=== PATIENT | female | born 1990 | race Caucasian/White ===

== ENCOUNTER 2017-02-04 17:07 | Emergency (ER) | payer MEDICAID ==
[2017-02-04 17:19] VITALS: BP 137/99
--- NOTE | 2017-02-04 17:23 | ER Document Report ---
HPI - HPI Patient complains to provider of: possible dust mite bites, dental pain Onset: Last week Onset/Duration: Gradual, Persistent Pain Level: 3 Context: 26-year-old female complaining of seeing the white bugs was her inner male partner. She has a facial rash which she is scratching and a left lower leg lesion that she scratched and deroofed that is been there for up to 3 weeks. No fever or chills. Denies drug use. She also is complaining of lower left dental pain her second molar is decayed to the root she says. No facial swelling. Associated Symptoms: None Exacerbated by: Denies Relieved by: Denies Similar symptoms previously: No Recently seen / treated by doctor: No - ROS ROS below otherwise negative: Yes Systems Reviewed and Negative: Yes All other systems reviewed and negative - DERM Skin Color: Normal Past Medical History - General Information source: Patient - Social History Smoking Status: Current Every Day Smoker Frequency of alcohol use: None Drug Abuse: None Lives with: Spouse/Significant other Family History: Reviewed & Not Pertinent Patient has suicidal ideation: No Patient has homicidal ideation: No - Medical History Medical History: Negative Renal/ Medical History: Denies: Hx Peritoneal Dialysis Surgical Hx: Negative Vertical Provider Document - CONSTITUTIONAL Agree With Documented VS: Yes Exam Limitations: No Limitations - INFECTION CONTROL TRAVEL OUTSIDE OF THE [place] IN LAST 30 DAYS: No - HEENT HEENT: Normocephalic Notes: Multiple decayed molars the lower left second molar is decayed to the pulp there is no inflammation or drainage. - NECK Neck: Supple. negative: Lymphadenopathy-Left, Lymphadenopathy-Right - RESPIRATORY Respiratory: Breath Sounds Normal, No Respiratory Distress O2 Sat by Pulse Oximetry: 98 - CARDIOVASCULAR Cardiovascular: Regular Rate, Regular Rhythm Notes: Repeat pulse was 90 - MUSCULOSKELETAL/EXTREMETIES Musculoskeletal/Extremeties: POLO LYLE - NEURO Level of Consciousness: Awake, Alert, Appropriate - DERM Integumentary: Rash - inflamed deroofed lesion left lower leg, 4 mm center, with 2 cm inflammation that is non tender (chronic itching). left mamdible lower cheek with deroofed pimples Course - Re-evaluation Re-evalutation: 02/04/17 17:59 Patient wanted to know what the white bugs were that she saw she was so she wanted me to check her for head lice and I also checked her mons pubis for pubic crabs neither of which she did not have either.. - Vital Signs Vital signs: Temp Pulse Resp BP Pulse Ox 98.3 F 117 H 137/99 H 98 02/04/17 17:16 02/04/17 17:16 02/04/17 17:16 02/04/17 17:16 Discharge - Discharge Clinical Impression: Toothache, Excoriated papule Condition: Good Disposition: HOME, SELF-CARE Instructions: Bactroban Ointment (OM), Clindamycin (OM), Dentist, Folliculitis ([facility]), Toothache (OM) Additional Instructions: Antibacterial soap Stop scratching Keep the fingernails clean and short See the commission for the blind director if persists See the dentist Return to the emergency room any concerns Prescriptions: Ibuprofen [Motrin 800 mg Tablet] 800 mg PO Q8HP PRN #30 tablet PRN Reason: Clindamycin HCl [Cleocin 150 mg Capsule] 300 mg PO TID #42 capsule Mupirocin [Bactroban 2% Ointment 22 gm] 1 applic TP TID #22 gm
== END 2017-02-04 18:15 | disposition home or self-care (01) ==
LOC: ER 17:07
DX: R23.8 Other skin changes (principal); K02.9 Dental caries, unspecified; K08.89 Other specified disorders of teeth and supporting structures; F17.200 Nicotine dependence, unspecified, uncomplicated
CPT/HCPCS: 99282

== ENCOUNTER 2017-06-01 21:48 | Emergency (ER) | payer MEDICAID ==
[2017-06-01 22:00] VITALS: BP 147/87
== END 2017-06-01 23:00 | disposition left against medical advice (07) ==
LOC: ER 21:48
DX: Z53.9 Procedure and treatment not carried out, unspecified reason (principal)

== ENCOUNTER 2017-06-02 04:15 | Inpatient (IN) | payer MEDICAID ==
[2017-06-02] MEDS ORDERED: LORAZEPAM INJ 2 MG/1 ML VIAL IV ONE ×2 (05:10→05:31)
--- NOTE | 2017-06-02 05:13 | ER Document Report ---
ED Extremity Problem, Upper - General Chief Complaint: Hand Pain Stated Complaint: FINGER PAIN Time Seen by Provider: 06/02/17 05:01 Notes: Patient is a 26-year-old female comes emergency department for chief complaint of redness, pain, and swelling of her right index finger for the past 2 days. She states that she tried to "milking" and some pus and blood came out. She states she is having trouble bending her finger now. She also states that she broke out in areas over her skin over her face and other places on her body after she took a "dirty shot of meth" 2 days ago. She denies fever, vomiting, chest pain, difficulty breathing. She states she is to be clean but she relapsed. She is on Depo shot, on lithium and anxiety medications. TRAVEL OUTSIDE OF THE [place] IN LAST 30 DAYS: No - Related Data Allergies/Adverse Reactions: codeine Allergy (Verified 06/01/17 21:53) Past Medical History - General Information source: Patient - Social History Smoking Status: Current Every Day Smoker Drug Abuse: Methamphetamine Lives with: Alone Family History: Reviewed & Not Pertinent Patient has suicidal ideation: No Patient has homicidal ideation: No Renal/ Medical History: Denies: Hx Peritoneal Dialysis Psychiatric Medical History: Reports: Hx Anxiety, Hx Bipolar Disorder, Hx Depression - Immunizations Immunizations up to date: No Hx Diphtheria, Pertussis, Tetanus Vaccination: Yes Review of Systems - Review of Systems Constitutional: No symptoms reported EENT: No symptoms reported Cardiovascular: No symptoms reported Respiratory: No symptoms reported Gastrointestinal: No symptoms reported Genitourinary: No symptoms reported Female Genitourinary: No symptoms reported Musculoskeletal: See HPI Skin: No symptoms reported Hematologic/Lymphatic: No symptoms reported Neurological/Psychological: See HPI Physical Exam - Vital signs Vitals: Temp Pulse BP Pulse Ox 99.5 F 114 H 130/82 H 97 06/02/17 04:24 06/02/17 04:24 06/02/17 04:24 06/02/17 04:24 Interpretation: Normal - General General appearance: Anxious In distress: None - HEENT Head: Normocephalic, Atraumatic Eyes: Normal Conjunctiva: Normal Pupils: PERRL Mucous membranes: Normal Pharynx: Normal Neck: Normal - Respiratory Respiratory status: No respiratory distress Chest status: Nontender Breath sounds: Normal. No: Decreased air movement, Wheezing Chest palpation: Normal - Cardiovascular Rhythm: Regular, Tachycardia Heart sounds: Normal auscultation, S1 appreciated, S2 appreciated Murmur: No - Abdominal Inspection: Normal Distension: No distension Bowel sounds: Normal Tenderness: Nontender. No: Tender, Guarding - Back Back: Normal, Nontender - Extremities General upper extremity: Other - Right hand with a small wound with dried blood over the DIP at the index finger. Minimal ability to flex at the DIP, bends normally at the PIP, extremely tender to palpation over the finger, erythema and warmth noted. Capillary refill and sensation intact. Erythema over the fourth digit as well. Unremarkable hand exam otherwise. - Neurological Neuro grossly intact: Yes Cognition: Normal Orientation: AAOx4 Rehana Coma Scale Eye Opening: Spontaneous Rehana Coma Scale Verbal: Oriented Bowler Coma Scale Motor: Obeys Commands Rehana Coma Scale Total: 15 Speech: Normal Motor strength normal: LUE, RUE, LLE, RLE Sensory: Normal - Psychological Associated symptoms: Anxious - Patient easily tearful, fidgety, restless, occasionally bursts out into tears, occasionally begins yelling - Skin Skin Temperature: Warm Skin Moisture: Dry Skin Color: Normal Skin irregularity: other - Patient with skin sores and crusting over her face and body Course - Re-evaluation Re-evalutation: 06/02/17 05:25 Patient with erythematous swollen right index finger with a tiny wound at the DIP. Very tender over the area. Still has a little bit of flexion capable at the DIP but this is painful, able to flex at the PIP. No fever. Multiple skin sores. Patient anxious but cooperative. 06/02/17 05:[address] Stevenson, orthopedics acetaldehyde converter operator, he recommends keeping patient n.p.o. and states he will come see the patient. Does not recommend antibiotics at this time unless we can culture. Unable to culture because of lack of drainage and patient cooperation. Patient became extremely anxious, yelling and screaming, crying, states that she cannot calm down. She still follows directions but she is very agitated. Patient given Ativan. On reexamination patient is still very agitated, will be given additional sedation. Discussed with Dr. Thorne. 06/02/17 Dr. Stevenson to bedside, evaluated patient, unfortunately patient is slightly oversedated now and even though she is arousable she is not able to answer questions effectively. Recommends Unasyn, Vancomycin, states he will admit, medicine and psychiatry to be consulted. - Vital Signs Vital signs: Temp Pulse Resp BP Pulse Ox 99.5 F 114 H 130/82 H 97 06/02/17 04:24 06/02/17 04:24 06/02/17 04:24 06/02/17 04:24 - Laboratory Result Diagrams: 06/02/17 05:25 06/02/17 05:25 Laboratory results interpreted by me: 06/02/17 06/02/17 05:25 05:25 WBC 19.4 H Seg Neutrophils % 89.3 H Lymphocytes % 5.1 L Absolute Neutrophils 17.3 H Sodium 132.2 L Potassium 3.4 L Chloride 97 L Discharge - Discharge Clinical Impression: Methamphetamine abuse Cellulitis, finger Qualifiers: Laterality: right Qualified Code(s): L03.011 - Cellulitis of right finger Leukocytosis Qualifiers: Leukocytosis type: other Qualified Code(s): D72.828 - Other elevated white blood cell count Condition: Stable Disposition: ADMITTED INPATIENT Admitting Provider: Surgicalist - Dr. Stevenson Unit Admitted: Telemetry
[2017-06-02] MEDS ORDERED: HALOPERIDOL LACTATE INJ 5 MG/1 ML VIAL IM ONE (05:30)
[2017-06-02 05:41] LABS: ABSOLUTE NEUT (AUTO) 17.3 10^3/uL (1.7-8.2); BASOPHILS % (AUTO) 0.2 % (0-2); HEMATOCRIT 36.1 % (36.0-47.0); HEMOGLOBIN 12.2 g/dL (12.0-15.5); LYMPHOCYTES % (AUTO) 5.1 % (13-45); MEAN CORPUSCULAR HGB CONC 33.7 g/dL (32.0-36.0); MEAN CORPUSCULAR VOLUME 89 fl (80-97); MONOCYTES % (AUTO) 5.4 % (3-13); PLATELET COUNT 257 10^3/uL (150-450); RED BLOOD COUNT 4.06 10^6/uL (3.72-5.28); RED CELL DISTRIBUTION WIDTH 13.1 % (11.5-14.0); SEGMENTED NEUTROPHILS % (AUTO) 89.3 % (42-78); TOTAL CELLS COUNTED % (AUTO) 100 %; WHITE BLOOD COUNT 19.4 10^3/uL (4.0-10.5)
[2017-06-02 05:56] LABS: ANION GAP 13 (5-19); BLOOD UREA NITROGEN 7 mg/dL (7-20); CALCIUM 9.8 mg/dL (8.4-10.2); CARBON DIOXIDE 22 mmol/L (22-30); CHLORIDE 97 mmol/L (98-107); GLUCOSE 100 mg/dL (75-110); POTASSIUM 3.4 mmol/L (3.6-5.0); SODIUM 132.2 mmol/L (137-145)
[2017-06-02] MEDS ORDERED: NORMAL SALINE 1000 ML 1,000 ML IV ONE (06:12)
[2017-06-02] MEDS ORDERED: DIPH/PERTUSS(ACELL)/TETANUS VAC/PF 0.5 ML SYR (>=10YO) IM ONE (06:44)
[2017-06-02] MEDS ORDERED: VANCOMYCIN HCL INJ 1000 MG VIAL IV ONE ×2 (06:52→09:45)
[2017-06-02] MEDS ORDERED: AMPICILLIN SOD/SULBACTAM 3 GM VIAL IV ONE (06:52)
--- NOTE | 2017-06-02 07:48 | PDOC H&P ---
History of Present Illness Admission Date/PCP: 06/02/17 07:38 Patient complains of: Right index finger pain History of Present Illness: NILDA WILLS is a 26 year old female who initially presented to emergency room yesterday but subsequently signed out. Patient was given sedation in the emergency room thus for adequate HPI difficult to obtain. According to the emergency room department reports patient had pain and swelling attempted milking out some pus and blood came out the tip of her finger. Since then she has had increasing redness swelling and pain for the past 2 days. She does admit to taking a "a dirty shot of meth" a few days ago since then she has broken out in multiple areas of skin lesions. Past Medical History Psychiatric Medical History: Reports: Bipolar Disorder, Depression Social History Lives with: Alone Smoking Status: Current Every Day Smoker Drugs: Methadone Family History Family History: Reviewed & Not Pertinent Parental Family History Reviewed: No Children Family History Reviewed: No Sibling(s) Family History Reviewed.: No Medication/Allergy Home Medications: Clindamycin HCl [Cleocin 150 mg Capsule] 300 mg PO TID #42 capsule 02/04/17 Ibuprofen [Motrin 800 mg Tablet] 800 mg PO Q8HP PRN #30 tablet 02/04/17 Mupirocin [Bactroban 2% Ointment 22 gm] 1 applic TP TID #22 gm 02/04/17 Allergies/Adverse Reactions: codeine Allergy (Verified 06/01/17 21:53) Review of Systems ROS unobtainable: Due to mental status Constitutional: ABSENT: chills, fever(s), headache(s), weight gain, weight loss Eyes: ABSENT: visual disturbances Ears: ABSENT: hearing changes Cardiovascular: ABSENT: chest pain, dyspnea on exertion, edema, orthropnea, palpitations Respiratory: ABSENT: cough, hemoptysis Gastrointestinal: ABSENT: abdominal pain, constipation, diarrhea, hematemesis, hematochezia, nausea, vomiting Genitourinary: ABSENT: dysuria, hematuria Musculoskeletal: PRESENT: as per HPI Integumentary: PRESENT: lesions. ABSENT: rash, wounds Neurological: ABSENT: abnormal gait, abnormal speech, confusion, dizziness, focal weakness, syncope Psychiatric: PRESENT: anxiety, depression. ABSENT: homidical ideation, suicidal ideation Endocrine: ABSENT: cold intolerance, heat intolerance, menstrual abnormalities, polydipsia, polyuria Hematologic/Lymphatic: ABSENT: easy bleeding, easy bruising, lymphadenopathy Physical Exam Vital Signs: Temp Pulse Resp BP Pulse Ox 99.5 F 114 H 130/82 H 97 06/02/17 04:24 06/02/17 04:24 06/02/17 04:24 06/02/17 04:24 General appearance: PRESENT: disheveled Head exam: PRESENT: atraumatic, normocephalic Eye exam: PRESENT: conjunctival injection Ear exam: PRESENT: normal external ear exam Mouth exam: PRESENT: moist, tongue midline Teeth exam: PRESENT: poor dentation Neck exam: PRESENT: full ROM. ABSENT: carotid bruit, JVD, lymphadenopathy, thyromegaly Respiratory exam: PRESENT: unlabored Cardiovascular exam: PRESENT: RRR. ABSENT: diastolic murmur, rubs, systolic murmur Pulses: PRESENT: normal radial pulses Vascular exam: PRESENT: normal capillary refill GI/Abdominal exam: PRESENT: normal bowel sounds, soft. ABSENT: distended, guarding, mass, organolmegaly, rebound, tenderness Rectal exam: PRESENT: deferred Musculoskeletal exam: PRESENT: other - Right index finger: Redness throughout the index finger with tenderness palpation on the volar aspect of the distal phalanx. Lesion noted volarly no purulence expressed. Patient has no tenderness along the proximal phalanx or A1 archana volarly. No pain with passive stretch. Patient unable to make a full composite fist. Cap refill less than 2 seconds. Neurological exam: PRESENT: alert, awake, oriented to person, oriented to place , oriented to time, oriented to situation, CN II-XII grossly intact. ABSENT: motor sensory deficit Psychiatric exam: PRESENT: agitated, anxious Skin exam: PRESENT: vesicles Assessment & Plan - Diagnosis (1) Cellulitis, finger Qualifiers: Laterality: right Qualified Code(s): L03.011 - Cellulitis of right finger Is this a current diagnosis for this admission?: Yes Plan: Patient's examination is limited due to her current sedated mental status. But currently there is no definitive signs or symptoms of flexor tenosynovitis however I am concerned of possible evolving flexor tenosynovitis. Thus I have recommended IV antibiotics Unasyn, vancomycin and Cipro given patient's history of possible bite wound and her history of IV drug abuse which would increase possibility of MRSA. Have also recommended psychiatric consultation along with hospice consultation for patient's other medical issues. Patient will be n.p.o. after midnight if she failed to see improvement would recommend operative intervention.
--- NOTE | 2017-06-02 08:21 | RADIOLOGY REPORT (SQ) ---
EXAM DESCRIPTION: FINGER RIGHT COMPLETED DATE/TIME: 06/02/2017 7:53 am REASON FOR STUDY: finger swelling COMPARISON: None. NUMBER OF VIEWS: Three views. TECHNIQUE: AP, lateral, and oblique images acquired of the right second finger. LIMITATIONS: None. FINDINGS: MINERALIZATION: Normal. BONES: No acute fracture or dislocation. No worrisome bone lesions. SOFT TISSUES: No foreign body. OTHER: No other significant finding. IMPRESSION: NO RADIOGRAPHIC EVIDENCE OF ACUTE INJURY. COMMENT: SITE OF TRAUMA/COMPLAINT MARKED/STAMP COMPLETED: YES. TECHNICAL DOCUMENTATION: JOB ID: [id number] [employer]- All Rights Reserved
[2017-06-02] MEDS ORDERED: VANCOMYCIN HCL 1,000 MG in DEXTROSE 5%-WATER 250 ML IV SCH (10:00)
[2017-06-02] MEDS ORDERED: VANCOMYCIN HCL INJ 1000 MG VIAL IV SCH (10:00)
[2017-06-02] MEDS: CIPROFLOXACIN 400 MG/D5W RTU 400 MG/200 ML RTUPB IV SCH ×2 (11:27→22:04)
[2017-06-02] MEDS ORDERED: AMPICILLIN SOD/SULBACTAM 3 GM VIAL IV SCH (12:00)
--- NOTE | 2017-06-02 12:46 | PSYCHOLOGICAL NOTE ---
Psych Note - Psych Note Psych Note: Reason for Consult: Hospitalist wanted to ensure all patient's medical needs are met. Patient has a history of substance use and psychiatric diagnoses. Consent Permissions: None given Patient is a 26 year old who presented by personal vehicle to the Emergency Department with finger pain and an abscess. Chart review revealed patient has a history of methamphetamine use and diagnoses of Bipolar Disorder and Anxiety. Patient was observed in bed apparently asleep. Patient was difficult to rouse and initially did not respond to repeated attempts to ask questions. Patient reported she was from out of town and was on her way to [facility]. She indicated her psychiatric medications, to include [place], Wellbutrin and Cymbalta, are prescribed by [place]. When provider attempted to continue questions about psychiatric needs, patient stated, "I don't need you to continue my meds. My meds are in my car. I came here to get this thing cut open but I guess that's not happening." Provider explained the patient's medical issues were being attended to by the medical staff. Patient denied suicidal/ homicidal ideation/intent or plan. Patient stated she did not want anyone to be contacted. Patient presented lethargic and groggy, unable to stay awake, though there were concerns she was guarded and choosing not to engage with provider. Because of this grogginess this provider was unable to get a full assessment. 1. 296.40 (F31.9) Bipolar Disorder, by history 2. 300.00 (F41.9) Anxiety, by history Plan/Impression: Psychiatrically cleared. Patient denied suicidal/homicidal ideation, intent or plan. Provider will reassess tomorrow and attempt to gather further information dependent on patient's presentation and cooperation. Dr. Smith was consulted in the care and management of this patient.
[2017-06-02] MEDS: AMPICILLIN SODIUM/SULBACTAM NA 3 GM in NORMAL SALINE 100 ML IV SCH ×2 (13:02→18:23)
[2017-06-02] MEDS ORDERED: HEPARIN SOD (PORCINE) 5,000 UNIT/ML 1 ML SYRINGE SUBCUT SCH (14:00)
[2017-06-02] MEDS: VANCOMYCIN HCL 1,000 MG in DEXTROSE 5%-WATER 250 ML IV SCH (15:03)
[2017-06-03] MEDS: VANCOMYCIN HCL 1,000 MG in DEXTROSE 5%-WATER 250 ML IV SCH ×3 (01:00→18:00)
[2017-06-03] MEDS: AMPICILLIN SODIUM/SULBACTAM NA 3 GM in NORMAL SALINE 100 ML IV SCH ×4 (03:20→21:26)
[2017-06-03 04:49] LABS: ABSOLUTE EOSINOPHILS # (AUTO) 0.2 10^3/uL (0.0-0.6); ABSOLUTE LYMPHOCYTES (AUTO) 1.3 10^3/uL (0.5-4.7); ABSOLUTE MONOCYTES (AUTO) 0.8 10^3/uL (0.1-1.4); ABSOLUTE NEUT (AUTO) 7.4 10^3/uL (1.7-8.2); BASOPHILS % (AUTO) 0.4 % (0-2); EOSINOPHILS % (AUTO) 2.2 % (0-6); HEMOGLOBIN 11.9 g/dL (12.0-15.5); LYMPHOCYTES % (AUTO) 13.7 % (13-45); MEAN CORPUSCULAR HEMOGLOBIN 30.7 pg (27.0-33.4); MEAN CORPUSCULAR VOLUME 91 fl (80-97); MONOCYTES % (AUTO) 8.2 % (3-13); PLATELET COUNT 207 10^3/uL (150-450); RED BLOOD COUNT 3.86 10^6/uL (3.72-5.28); RED CELL DISTRIBUTION WIDTH 13.1 % (11.5-14.0); SEGMENTED NEUTROPHILS % (AUTO) 75.5 % (42-78); TOTAL CELLS COUNTED % (AUTO) 100 %; WHITE BLOOD COUNT 9.8 10^3/uL (4.0-10.5)
--- NOTE | 2017-06-03 08:35 | PDOC PROGRESS REPORT ---
Subjective Progress Note for:: 06/03/17 Subjective:: Continues to have discomfort in her right index finger. Denies significant change. Reason For Visit: CELLULITIS RIGHT INDEX FINGER Physical Exam Vital Signs: Temp Pulse Resp BP Pulse Ox 98.7 F 78 16 131/73 H 100 06/03/17 04:04 06/03/17 04:04 06/03/17 04:04 06/03/17 04:04 06/03/17 04:04 Intake & Output 06/02/17 06/03/17 06/04/17 06:59 06:59 06:59 Intake Total 1693 Output Total 400 Balance 1293 Weight 73.7 kg Musculoskeletal exam: PRESENT: other - Right index finger: Erythema along the volar aspect of the digit. No active purulence. More discrete tenderness along the volar DIP joint and middle phalanx. Mild tenderness on the A1 archana. Digit rest in the extended position. Patient has limited flexion. Results Laboratory Results: 06/03/17 04:22 06/03/17 04:22 WBC 9.8 RBC 3.86 Hgb 11.9 L Hct 35.0 L MCV 91 MCH 30.7 MCHC 34.0 RDW 13.1 Plt Count 207 Seg Neutrophils % 75.5 Lymphocytes % 13.7 Monocytes % 8.2 Eosinophils % 2.2 Basophils % 0.4 Absolute Neutrophils 7.4 Absolute Lymphocytes 1.3 Absolute Monocytes 0.8 Absolute Eosinophils 0.2 Absolute Basophils 0.0 Impressions: Finger X-Ray 06/02/17 06:48 IMPRESSION: NO RADIOGRAPHIC EVIDENCE OF ACUTE INJURY. Assessment & Plan - Diagnosis (1) Cellulitis, finger Qualifiers: Laterality: right Qualified Code(s): L03.011 - Cellulitis of right finger Is this a current diagnosis for this admission?: Yes (2) Flexor tenosynovitis of finger Is this a current diagnosis for this admission?: Yes Plan: Patient's digit is relatively unchanged over the past 24 hours thus I have recommended operative intervention which includes irrigation and debridement of right index finger flexor tendon sheath. Patient understands risks and benefits of the operative procedure including recurrent infection, postoperative pain, postoperative stiffness, worsening infection requiring amputation and any unforeseen complications patient has verbalized understanding consented for the procedure.
[2017-06-03] MEDS ORDERED: VANCOMYCIN HCL INJ 500 MG VIAL ONE (09:46)
[2017-06-03] MEDS ORDERED: CIPROFLOXACIN 400 MG/D5W RTU 400 MG/200 ML RTUPB IV ONE (09:46)
[2017-06-03] MEDS: CIPROFLOXACIN 400 MG/D5W RTU 400 MG/200 ML RTUPB IV SCH ×2 (10:00→22:44)
[2017-06-03] MEDS ORDERED: MIDAZOLAM 2 MG/2 ML INJ ONE (10:19)
[2017-06-03] MEDS ORDERED: FENTANYL CITRATE INJ/PF 100 MCG/2 ML AMPUL ONE (10:19)
[2017-06-03] MEDS ORDERED: PROPOFOL INJ 200 MG/20 ML VIAL IV ONE (10:20)
[2017-06-03] MEDS ORDERED: BACITRACIN INJ 50,000 UNIT VIAL ONE (10:23)
[2017-06-03] MEDS ORDERED: PROMETHAZINE HCL INJ 25 MG/1 ML VIAL IV PRN (10:27)
[2017-06-03] MEDS ORDERED: MEPERIDINE HCL/PF INJ 25 MG/1 ML DISP.SYRIN IV PRN (10:27)
[2017-06-03] MEDS ORDERED: DIPHENHYDRAMINE HCL 50 MG/ML VIAL IV PRN (10:27)
[2017-06-03] MEDS ORDERED: FENTANYL CITRATE INJ/PF 100 MCG/2 ML AMPUL IV PRN ×3 (10:27)
[2017-06-03] MEDS ORDERED: MORPHINE SULFATE 10 MG/ML INJ IV PRN (10:27)
--- NOTE | 2017-06-03 10:45 | PSYCHOLOGICAL NOTE ---
Psych Note - Psych Note Psych Note: Reason for Consult: Hospitalist wanted to ensure all patient's medical needs are met. Patient has a history of substance use and psychiatric diagnoses. Consent Permissions: None given Provider attempted to meet with patient. Per nurse, patient is in pre-op.
[2017-06-03] MEDS ORDERED: BUPIVACAINE HCL 0.5 % INJ/PF 30 ML SDV ONE (11:17)
--- NOTE | 2017-06-03 11:33 | Operative Report ---
Operative Report DATE OF SURGERY: 06/03/17 PREOPERATIVE DIAGNOSIS: Flexor tenosynovitis right index finger POSTOPERATIVE DIAGNOSIS: Same OPERATION: Irrigation debridement tendon sheath right index finger SURGEON: ZOHREH TEJEDA ANESTHESIA: GA TISSUE REMOVED OR ALTERED: Aerobic/anaerobic culture COMPLICATIONS: None ESTIMATED BLOOD LOSS: Minimal PROCEDURE: Indication for above procedure: 26-year-old female with history of drug abuse who apparently injected methamphetamine in her left arm. 2 days later she began having redness swelling and pain in her right index finger. Upon evaluation in the emergency room there is concern for possible cellulitis. Antibiotics were given for 24 hours but patient continued to have pain and discomfort at that point we discussed treatment options and the decision was made to proceed with operative treatment which includes irrigation debridement right index finger. Procedure In Detail: Patient was seen and evaluated in the preoperative holding area. The RIGHT upper extremity was initialized and marked. Patient received 2g of Ancef IV for bacterial prophylaxis. Patient was taken back to the operative room where transferred to the operative table and placed under general anesthesia. Once they were adequately anesthetized a nonsterile tourniquet was placed on the upper extremity. A surgical team debriefing was performed ensuring all instrumentation was available, the surgical procedure was discussed with possible concerns reviewed. The upper extremity was prepped with chlorhexidine and alcohol and draped in a sterile fashion. A timeout was done identifying correct patient, procedure and extremity everyone in attendance agree with this and verbalized no concerns. The extremity was elevated and the tourniquet was inflated to 250 mmHg. Transverse skin incision was made at the DIP joint volarly where the patient's wound was located. Blunt dissection was performed the radial and ulnar neurovascular bundles were retracted. There was gross purulence at this level. Any nonviable tissue was excised and sent for AFB and fungal culture. Aerobic and anaerobic cultures were obtained from this region. Oblique skin incision was made over the A1 archana. Blunt dissection performed once again radial and ulnar neurovascular bundles were identified the A1 archana was then incised through the palmar aponeurotic archana proximally into the A2 archana. Cloudy fluid was encountered within the flexor sheath. The wound was then copiously irrigated with normal saline. Any nonviable tissue was excised. With a tendon passer a pediatric feeding tube with extra fenestrations at it was passed from proximal to distal. I then irrigated saline through the pediatric feeding tube. The pediatric feeding tube was left in place to allow possible later irrigation. Skin incision proximally was closed with 3-0 nylon suture. Distal incision was left open to allow healing by secondary intention. 15 cc of 0.5% Marcaine without epinephrine was injected for postoperative pain control. Wound was dressed with Xeroform and a soft dressing. Tourniquet was deflated. Patient had good peripheral perfusion. Sponge counts, instrument counts, needle counts counts were correct. Patient was then awoken from anesthesia. Transferred from the operating room table to the operating room stretcher. There was no intraoperative complications patient tolerated procedure well stable to PACU. Postoperative plan: Patient will continue IV antibiotics which will be adjusted as per sensitivities. Once culture and sensitivity complete patient will be discharged to home on p.o. antibiotics. Dressing change on postop day #2.
--- NOTE | 2017-06-03 13:02 | PDOC CONSULTATION ---
Consultation Consult Date: 06/03/17 History of Present Illness Admission Date/PCP: 06/02/17 07:38 History of Present Illness: 26-year-old female with past medical history of Borderline personality disorder Anxiety Methamphetamine use Outpatient medications: [facility] [place] 450 mg twice a day Wellbutrin 200 mg twice a day Cymbalta 20 mg twice a day Doxepin at bedtime She says that on Friday she injected herself with methamphetamine. Over the next couple of days she developed some sores on her face on the tip of her right index finger as well as on the inner aspect of her right thigh. She tried to cut open the lesion on the tip of her finger as well as the one on the thigh to express pus however was not able to get it open. The redness got worse and she developed increasing pain and therefore came to the hospital. Was admitted by Dr. Stevenson, was concerned about possibility of evolving flexor tenosynovitis and started her on IV vancomycin and ciprofloxacin and Unasyn. This morning she underwent incision and drainage of the right index finger in the operating room. I saw her just after she came back from the OR. She has no complaints at present. She tells me that she has borderline personality disorder, severe anxiety and depression and not bipolar disorder. She reports taking her medications as prescribed, and was recently at a drug rehab facility. Past Medical History Medical History: None Pulmonary Medical History: Reports: None EENT Medical History: Reports: None Neurological Medical History: Reports: None Endocrine Medical History: Reports: None Renal/ Medical History: Reports: None Malignancy Medical History: Reports: None GI Medical History: Reports: None Musculoskeltal Medical History: Reports: None Skin Medical History: Reports: None Psychiatric Medical History: Reports: Depression, General Anxiety Disorder, Personality Disorder, Substance Abuse Traumatic Medical History: Reports: None Hematology: Reports: None Infectious Medical History: Reports: None Social History Lives with: Alone Smoking Status: Current Every Day Smoker Hx Recreational Drug Use: Yes Drugs: Methadone, Other - Advance Directive Resuscitation Status: Full Code Family History Family History: Reviewed & Not Pertinent Parental Family History Reviewed: Yes Children Family History Reviewed: Yes Sibling(s) Family History Reviewed.: Yes Medication/Allergy Home Medications: Bupropion HCl [Wellbutrin Sr 200 mg Tablet] 200 mg PO BID 06/02/17 Doxepin HCl [Sinequan 25 mg Capsule] 75 mg PO QHS 06/02/17 Duloxetine HCl [Cymbalta] 60 mg PO BID 06/02/17 [place] Carbonate [[place] Carbonate ER] 450 mg PO BID 06/02/17 Allergies/Adverse Reactions: codeine Allergy (Verified 06/01/17 21:53) Review of Systems Constitutional: PRESENT: as per HPI. ABSENT: fever(s), headache(s) Eyes: ABSENT: visual disturbances Ears: ABSENT: hearing changes Nose, Mouth, and Throat: ABSENT: mouth pain, sore throat Cardiovascular: ABSENT: chest pain, dyspnea on exertion, palpitations Gastrointestinal: ABSENT: abdominal pain, coffee ground emesis, constipation, diarrhea, dysphagia, hematemesis, melena, vomiting Genitourinary: ABSENT: hematuria, nocturia Musculoskeletal: ABSENT: deformity, joint swelling, muscle weakness Integumentary: PRESENT: lesions Neurological: ABSENT: focal weakness, frequent falls, lack of coordination Psychiatric: PRESENT: anxiety, depression Endocrine: ABSENT: cold intolerance, flushing, heat intolerance, polydipsia Hematologic/Lymphatic: ABSENT: easy bleeding, easy bruising Allergic/Immunologic: PRESENT: as per HPI Physical Exam Vital Signs: Temp Pulse Resp BP Pulse Ox 98.4 F 86 17 143/94 H 99 06/03/17 11:30 06/03/17 11:30 06/03/17 11:30 06/03/17 11:30 06/03/17 11:30 Intake & Output 06/02/17 06/03/17 06/04/17 06:59 06:59 06:59 Intake Total 1693 1950 Output Total 400 1000 Balance 1293 950 Weight 73.7 kg Additional comments: Young female lying in bed not in acute distress Pupils equal reactive to light no icterus no pallor normal external ears and nose moist pink oropharyngeal mucosa Skin: She has multiple small 0.5 cm lesions with central area of purulence over her face and also a couple on her lower lip. She has 1 lesion on the inner aspect of her thigh appears to be healing, this is surrounded by erythema with diameter of about 6 cm. There is no fluctuance or induration palpable. No discharge. Lungs: Clear to auscultation bilaterally normal respiratory effort Cardiac: S1-S2 regular no murmurs heard no peripheral edema no cyanosis no calf tenderness Abdomen: Soft, no focal tenderness normal bowel sounds Neurologic: Awake and alert speech is clear and fluent no facial droop Right hand is wrapped in dressing and there is a drain present. Results Laboratory Results: 06/03/17 04:22 06/03/17 04:22 WBC 9.8 RBC 3.86 Hgb 11.9 L Hct 35.0 L MCV 91 MCH 30.7 MCHC 34.0 RDW 13.1 Plt Count 207 Seg Neutrophils % 75.5 Lymphocytes % 13.7 Monocytes % 8.2 Eosinophils % 2.2 Basophils % 0.4 Absolute Neutrophils 7.4 Absolute Lymphocytes 1.3 Absolute Monocytes 0.8 Absolute Eosinophils 0.2 Absolute Basophils 0.0 Impressions: Finger X-Ray 06/02/17 06:48 IMPRESSION: NO RADIOGRAPHIC EVIDENCE OF ACUTE INJURY. Assessment & Plan - Diagnosis (1) Cellulitis, finger Qualifiers: Laterality: right Qualified Code(s): L03.011 - Cellulitis of right finger Is this a current diagnosis for this admission?: Yes Plan: Day 2 of vancomycin and ciprofloxacin and Unasyn. Management per surgical service. Follow-up on cultures. (2) Cellulitis of right thigh Is this a current diagnosis for this admission?: Yes Plan: Continue to monitor. Continue antibiotics. (3) Methamphetamine abuse Is this a current diagnosis for this admission?: Yes (4) Anxiety Is this a current diagnosis for this admission?: Yes (5) Depression Is this a current diagnosis for this admission?: Yes (6) Borderline personality disorder Is this a current diagnosis for this admission?: Yes - Time Time Spent: 30 to 50 Minutes - Plan Summary Plan Summary: Thank you for this consult. We will continue to follow with you.
[2017-06-03] MEDS: LACTOBACILLUS ACIDOPHILUS 250 MG TAB PO SCH (17:31)
[2017-06-03] MEDS: IBUPROFEN 400 MG TABLET PO PRN (18:00)
[2017-06-03 18:31] LABS: VANCOMYCIN,TROUGH 9.1 ug/mL (5.0-20.0)
[2017-06-03] MEDS: ACETAMINOPHEN 325 MG TABLET PO PRN (21:23)
[2017-06-03] MEDS: DULOXETINE HCL 30 MG CAPSULE.DR PO SCH (21:24)
[2017-06-03] MEDS: LITHIUM CARBONATE 450 MG TABLET.ER PO SCH (21:24)
[2017-06-03] MEDS: DOXEPIN HCL 25 MG CAPSULE PO SCH (21:25)
[2017-06-03] MEDS: BUPROPION HCL 100 MG TABLET PO SCH (21:29)
[2017-06-04] MEDS: VANCOMYCIN HCL 1,250 MG in DEXTROSE 5%-WATER 250 ML IV SCH ×3 (02:26→17:22)
[2017-06-04] MEDS: AMPICILLIN SODIUM/SULBACTAM NA 3 GM in NORMAL SALINE 100 ML IV SCH ×4 (03:32→21:10)
[2017-06-04 05:05] LABS: ABSOLUTE EOSINOPHILS # (AUTO) 0.2 10^3/uL (0.0-0.6); ABSOLUTE LYMPHOCYTES (AUTO) 1.8 10^3/uL (0.5-4.7); ABSOLUTE MONOCYTES (AUTO) 0.6 10^3/uL (0.1-1.4); ABSOLUTE NEUT (AUTO) 4.1 10^3/uL (1.7-8.2); BASOPHILS % (AUTO) 0.4 % (0-2); HEMATOCRIT 36.9 % (36.0-47.0); HEMOGLOBIN 12.5 g/dL (12.0-15.5); LYMPHOCYTES % (AUTO) 26.4 % (13-45); MEAN CORPUSCULAR HEMOGLOBIN 30.4 pg (27.0-33.4); MEAN CORPUSCULAR HGB CONC 33.9 g/dL (32.0-36.0); MEAN CORPUSCULAR VOLUME 90 fl (80-97); MONOCYTES % (AUTO) 8.9 % (3-13); PLATELET COUNT 233 10^3/uL (150-450); RED CELL DISTRIBUTION WIDTH 13.1 % (11.5-14.0); SEGMENTED NEUTROPHILS % (AUTO) 61.3 % (42-78); TOTAL CELLS COUNTED % (AUTO) 100 %; WHITE BLOOD COUNT 6.8 10^3/uL (4.0-10.5)
[2017-06-04 05:27] LABS: ALANINE AMINOTRANSFERASE 21 U/L (9-52); ALBUMIN 3.4 g/dL (3.5-5.0); ALKALINE PHOSPHATASE 57 U/L (38-126); ANION GAP 10 (5-19); ASPARTATE AMINO TRANSFERASE 14 U/L (14-36); BILIRUBIN,DIRECT 0.2 mg/dL (0.0-0.4); BILIRUBIN,TOTAL 0.3 mg/dL (0.2-1.3); BLOOD UREA NITROGEN 5 mg/dL (7-20); CALCIUM 9.4 mg/dL (8.4-10.2); CARBON DIOXIDE 26 mmol/L (22-30); CHLORIDE 107 mmol/L (98-107); GLUCOSE 89 mg/dL (75-110); LITHIUM 0.3 mEq/L (0.6-1.2); MAGNESIUM 2.2 mg/dL (1.6-2.3); POTASSIUM 3.1 mmol/L (3.6-5.0); SODIUM 143.4 mmol/L (137-145); TOTAL PROTEIN 5.2 g/dL (6.3-8.2)
[2017-06-04] MEDS ORDERED: POTASSIUM CHLORIDE 10 MEQ TABLET.SA PO ONE (08:00)
[2017-06-04] MEDS: BUPROPION HCL 100 MG TABLET PO SCH ×2 (08:55→17:23)
[2017-06-04] MEDS: DULOXETINE HCL 30 MG CAPSULE.DR PO SCH ×2 (10:16→21:09)
[2017-06-04] MEDS: LITHIUM CARBONATE 450 MG TABLET.ER PO SCH ×2 (10:16→21:09)
[2017-06-04] MEDS: CIPROFLOXACIN 400 MG/D5W RTU 400 MG/200 ML RTUPB IV SCH (10:17)
[2017-06-04] MEDS: LACTOBACILLUS ACIDOPHILUS 250 MG TAB PO SCH ×2 (10:17→17:23)
--- NOTE | 2017-06-04 11:24 | PDOC PROGRESS REPORT ---
Subjective Progress Note for:: 06/04/17 Subjective:: The patient is seen on morning rounds as a follow-up. The hospitalist service has been consulted for medication management. Her right finger cellulitis is being followed by her primary attending; Orthopedics. Psychology has been consulted to review and make recommendations on the patient's gastric medications. The patient is found resting in bed comfortably. She is sleeping when I enter the room but wakes easily. She reports that her pain is well controlled at present. She requests to have the scheduling of her Wellbutrin adjusted to match her home schedule. Otherwise, she has no other questions or complaints at this time. Reason For Visit: CELLULITIS RIGHT FINGER Physical Exam Vital Signs: Temp Pulse Resp BP Pulse Ox 98.6 F 79 12 120/72 99 06/04/17 07:12 06/04/17 07:12 06/04/17 07:12 06/04/17 07:12 06/04/17 07:12 Intake & Output 06/03/17 06/04/17 06/05/17 06:59 06:59 06:59 Intake Total 1693 4403 Output Total 400 1150 Balance 1293 3253 Weight 73.7 kg 76.5 kg General appearance: PRESENT: no acute distress, well-developed, well-nourished Head exam: PRESENT: atraumatic, normocephalic Eye exam: PRESENT: conjunctiva pink, EOMI, PERRLA. ABSENT: scleral icterus Ear exam: PRESENT: normal external ear exam Mouth exam: PRESENT: moist, tongue midline Neck exam: ABSENT: carotid bruit, JVD, lymphadenopathy, thyromegaly Respiratory exam: PRESENT: clear to auscultation chely. ABSENT: rales, rhonchi, wheezes Cardiovascular exam: PRESENT: RRR. ABSENT: diastolic murmur, rubs, systolic murmur Pulses: PRESENT: normal dorsalis pedis pul Vascular exam: PRESENT: normal capillary refill GI/Abdominal exam: PRESENT: normal bowel sounds, soft. ABSENT: distended, guarding, mass, organolmegaly, rebound, tenderness Rectal exam: PRESENT: deferred Extremities exam: PRESENT: tenderness - Right index finger. ABSENT: calf tenderness, clubbing, full ROM - Right hand with splint and surgical dressing in place., pedal edema Neurological exam: PRESENT: alert, awake, oriented to person, oriented to place , oriented to time, oriented to situation, CN II-XII grossly intact. ABSENT: motor sensory deficit Psychiatric exam: PRESENT: flat affect, normal mood. ABSENT: homicidal ideation , suicidal ideation Skin exam: PRESENT: dry, warm. ABSENT: cyanosis, intact - Numerous 0.5 cm round crusted lesions to the patient's base and lower lip; no erythema or edema present. 1 cm lesion to the inner aspect of her right thigh with surrounding erythema., rash Results Laboratory Results: 06/04/17 04:56 06/04/17 04:56 06/04/17 06/04/17 04:56 04:56 WBC 6.8 RBC 4.10 Hgb 12.5 Hct 36.9 MCV 90 MCH 30.4 MCHC 33.9 RDW 13.1 Plt Count 233 Seg Neutrophils % 61.3 Lymphocytes % 26.4 Monocytes % 8.9 Eosinophils % 3.0 Basophils % 0.4 Absolute Neutrophils 4.1 Absolute Lymphocytes 1.8 Absolute Monocytes 0.6 Absolute Eosinophils 0.2 Absolute Basophils 0.0 Sodium 143.4 Potassium 3.1 L Chloride 107 Carbon Dioxide 26 Anion Gap 10 BUN 5 L Creatinine 0.60 Est GFR ( Amer) > 60 Est GFR (Non-Af Amer) > 60 Glucose 89 Calcium 9.4 Phosphorus 3.0 Magnesium 2.2 Total Bilirubin 0.3 AST 14 ALT 21 Alkaline Phosphatase 57 Total Protein 5.2 L Albumin 3.4 L Impressions: Finger X-Ray 06/02/17 06:48 IMPRESSION: NO RADIOGRAPHIC EVIDENCE OF ACUTE INJURY. Assessment & Plan - Diagnosis (1) Hypokalemia Is this a current diagnosis for this admission?: Yes Plan: Replete. Continue to monitor with serial BMP. (2) Depression Is this a current diagnosis for this admission?: Yes Plan: We will continue the patient's home medication regimen. Appreciate psychology's consultation and recommendation. (3) Anxiety Is this a current diagnosis for this admission?: Yes Plan: We will continue the patient's home medication regimen. Appreciate psychology's consultation and recommendation. (4) Borderline personality disorder Is this a current diagnosis for this admission?: Yes Plan: We will continue the patient's home medication regimen. Appreciate psychology's consultation and recommendation. (5) Cellulitis, finger Qualifiers: Laterality: right Qualified Code(s): L03.011 - Cellulitis of right finger Is this a current diagnosis for this admission?: Yes Plan: Primary plan per orthopedic services. Blood cultures: No growth at 48 hours Right index finger wound culture: Group A beta Streptococcus Day 3 of Cipro, vancomycin, and Unasyn. Antibiotic management per Ortho. Pain management with ibuprofen and Tylenol as needed. (6) Cellulitis of right thigh Is this a current diagnosis for this admission?: Yes Plan: As above. (7) Leukocytosis Qualifiers: Leukocytosis type: other Qualified Code(s): D72.828 - Other elevated white blood cell count Plan: Resolved; secondary to cellulitis. (8) Methamphetamine abuse Is this a current diagnosis for this admission?: Yes - Time Time Spent with patient: 15-24 minutes Medications reviewed and adjusted accordingly: Yes
[2017-06-04] MEDS: IBUPROFEN 400 MG TABLET PO PRN (16:16)
[2017-06-04] MEDS: DOXEPIN HCL 25 MG CAPSULE PO SCH (21:09)
[2017-06-05] MEDS: AMPICILLIN SODIUM/SULBACTAM NA 3 GM in NORMAL SALINE 100 ML IV SCH ×2 (02:30→09:07)
[2017-06-05] MEDS: IBUPROFEN 400 MG TABLET PO PRN (02:52)
[2017-06-05 05:04] LABS: ABSOLUTE EOSINOPHILS # (AUTO) 0.2 10^3/uL (0.0-0.6); ABSOLUTE LYMPHOCYTES (AUTO) 2.3 10^3/uL (0.5-4.7); ABSOLUTE MONOCYTES (AUTO) 0.5 10^3/uL (0.1-1.4); ABSOLUTE NEUT (AUTO) 2.5 10^3/uL (1.7-8.2); BASOPHILS % (AUTO) 0.7 % (0-2); EOSINOPHILS % (AUTO) 3.9 % (0-6); HEMATOCRIT 35.6 % (36.0-47.0); HEMOGLOBIN 11.9 g/dL (12.0-15.5); MEAN CORPUSCULAR HEMOGLOBIN 30.2 pg (27.0-33.4); MEAN CORPUSCULAR HGB CONC 33.3 g/dL (32.0-36.0); MEAN CORPUSCULAR VOLUME 91 fl (80-97); MONOCYTES % (AUTO) 9.2 % (3-13); PLATELET COUNT 260 10^3/uL (150-450); RED BLOOD COUNT 3.93 10^6/uL (3.72-5.28); RED CELL DISTRIBUTION WIDTH 12.6 % (11.5-14.0); SEGMENTED NEUTROPHILS % (AUTO) 45.2 % (42-78); TOTAL CELLS COUNTED % (AUTO) 100 %; WHITE BLOOD COUNT 5.6 10^3/uL (4.0-10.5)
[2017-06-05 05:26] LABS: ANION GAP 9 (5-19); BLOOD UREA NITROGEN 8 mg/dL (7-20); CALCIUM 9.5 mg/dL (8.4-10.2); CARBON DIOXIDE 26 mmol/L (22-30); CHLORIDE 109 mmol/L (98-107); GLUCOSE 91 mg/dL (75-110); POTASSIUM 3.4 mmol/L (3.6-5.0); SODIUM 144.4 mmol/L (137-145)
[2017-06-05] MEDS: ACETAMINOPHEN 325 MG TABLET PO PRN (05:55)
[2017-06-05] MEDS: BUPROPION HCL 100 MG TABLET PO SCH (05:55)
--- NOTE | 2017-06-05 06:54 | PDOC PROGRESS REPORT ---
Subjective Progress Note for:: 06/04/17 Subjective:: Patient resting comfortably in bed. No issues overnight. Dressing is intact. Reason For Visit: CELLULITIS RIGHT FINGER Physical Exam Vital Signs: Temp Pulse Resp BP Pulse Ox 36.8 C 74 16 109/61 99 06/05/17 03:30 06/05/17 03:30 06/05/17 03:30 06/05/17 03:30 06/05/17 03:30 Intake & Output 06/03/17 06/04/17 06/05/17 06:59 06:59 06:59 Intake Total 1693 4403 6320 Output Total 400 1150 Balance 1293 3253 6320 Weight 73.7 kg 76.5 kg Front of Hands Image: 1 - Dressing and catheter are dry clean and intact. Patient has good capillary refill to the fingertip and good gross sensation to light touch although complains of some tingling. Neurological exam: PRESENT: awake, oriented to person, oriented to place, oriented to time, oriented to situation Psychiatric exam: PRESENT: appropriate affect, normal mood Results Laboratory Results: 06/05/17 04:44 06/05/17 04:44 06/05/17 06/05/17 04:44 04:44 WBC 5.6 RBC 3.93 Hgb 11.9 L Hct 35.6 L MCV 91 MCH 30.2 MCHC 33.3 RDW 12.6 Plt Count 260 Seg Neutrophils % 45.2 Lymphocytes % 41.0 Monocytes % 9.2 Eosinophils % 3.9 Basophils % 0.7 Absolute Neutrophils 2.5 Absolute Lymphocytes 2.3 Absolute Monocytes 0.5 Absolute Eosinophils 0.2 Absolute Basophils 0.0 Sodium 144.4 Potassium 3.4 L Chloride 109 H Carbon Dioxide 26 Anion Gap 9 BUN 8 Creatinine 0.67 Est GFR ( Amer) > 60 Est GFR (Non-Af Amer) > 60 Glucose 91 Calcium 9.5 06/03/17 10:58 Hand - Cellulitis AFB Smear Concentration - Final 06/03/17 10:58 Hand - Cellulitis Acid Fast Bacilli Smear - Final Impressions: Finger X-Ray 06/02/17 06:48 IMPRESSION: NO RADIOGRAPHIC EVIDENCE OF ACUTE INJURY. Assessment & Plan - Plan Summary Plan Summary: Patient is status post I&D of right index finger flexor tenosynovitis Cultures came back for group a streptococcus. Patient will be discharged on 06/05/2017 on Augmentin. [place] so she will be instructed to follow-up with orthopedics in a week.
[2017-06-05] MEDS: DULOXETINE HCL 30 MG CAPSULE.DR PO SCH (09:06)
[2017-06-05] MEDS: LACTOBACILLUS ACIDOPHILUS 250 MG TAB PO SCH (09:06)
[2017-06-05] MEDS: LITHIUM CARBONATE 450 MG TABLET.ER PO SCH (09:07)
[2017-06-05] MEDS ORDERED: POTASSIUM CHLORIDE 10 MEQ TABLET.SA PO ONE (09:45)
[2017-06-05 10:05] LABS: VANCOMYCIN,TROUGH < 5.0 ug/mL (5.0-20.0)
[2017-06-05 10:29] VITALS: BP 130/76
--- NOTE | 2017-06-06 15:10 | Progress Note ---
Provider Note Provider Note: Attempted to contact patient given her recent findings of methicillin-resistant staph aureus. Current antibiotic not adequate coverage. We will continue to attempt communication with patient to change her antibiotic to Bactrim.
--- NOTE | 2017-07-01 08:23 | PDOC DISCHARGE SUMMARY ---
General - Admit/Disc Date/PCP Admission Date/Primary Care Provider: 06/02/17 07:38 Discharge Date: 07/06/17 - Discharge Diagnosis (1) Cellulitis, finger Is this a current diagnosis for this admission?: Yes (2) Flexor tenosynovitis of finger Is this a current diagnosis for this admission?: Yes - Additional Information Resuscitation Status: Full Code Discharge Diet: As Tolerated Discharge Activity: Activity As Tolerated Prescriptions: Amox Tr/Potassium Clavulanate [Augmentin 875-125 mg Tablet] 1 tab PO BID #20 tablet Home Medications: Bupropion HCl [Wellbutrin Sr 200 mg Tablet] 200 mg PO BID 06/02/17 Doxepin HCl [[place]an 25 mg Capsule] 75 mg PO QHS 06/02/17 Duloxetine HCl [Cymbalta] 60 mg PO BID 06/02/17 [place] Carbonate [[place] Carbonate ER] 450 mg PO BID 06/02/17 Amox Tr/Potassium Clavulanate [Augmentin 875-125 mg Tablet] 1 tab PO BID #20 tablet 06/05/17 History of Present Illness Patient complains of: Right index finger pain History of Present Illness: NILDA WILLS is a 26 year old female who initially presented to emergency room yesterday but subsequently signed out. Patient was given sedation in the emergency room thus for adequate HPI difficult to obtain. According to the emergency room department reports patient had pain and swelling attempted milking out some pus and blood came out the tip of her finger. Since then she has had increasing redness swelling and pain for the past 2 days. She does admit to taking a "a dirty shot of meth" a few days ago since then she has broken out in multiple areas of skin lesions. Hospital Course Hospital Course: Patient was admitted to the orthopedic service on 06/02/17 for possible cellulitis versus flexor tenosynovitis of her index finger. After IV antibiotics patient failed to see significant improvement thus went to the operating room on 06/03/17 irrigation debridement of the right index finger. During her hospital course patient was on IV antibiotics covering MSSA and MRSA. She noted her pain had improved and thus the drain was removed on . Patient was seen and evaluated by my partner and decision was made for discharge home given the cultures were positive for Streptococcus. However later cultures became positive for methicillin-resistant staph and thus I attempted to contact the patient to alter her antibiotics but patient was unable to be contacted. On date of discharge patient had been improving and denied fever chills or sweats. Physical Exam Vital Signs: Temp Pulse Resp BP Pulse Ox 97.4 F 67 18 130/76 H 97 06/05/17 10:25 06/05/17 10:25 06/05/17 10:25 06/05/17 10:25 06/05/17 10:25 General appearance: PRESENT: no acute distress, cooperative Respiratory exam: PRESENT: unlabored Musculoskeletal exam: PRESENT: other - Right index finger: Surgical incision healing no tenderness on the flexor sheath. Patient does have limited motion with attempted fist. Intact sensation to light touch. Cap refill less than 2 seconds. Results Laboratory Results: 06/05/17 04:44 06/05/17 09:25 Impressions: Finger X-Ray 06/02/17 06:48 IMPRESSION: NO RADIOGRAPHIC EVIDENCE OF ACUTE INJURY. Plan Discharge Plan: Plan was for patient to continue Augmentin and daily chlorhexidine soaks. However once patient's cultures came back positive for MRSA attempted to contact the patient to alter her antibiotics but was unable to get hold of the patient. My office staff also attempted on multiple occasions without success. Patient was to follow-up the office with me in 7-10 days but she was from the [place] part of the [facility] and thus if she was unable to see me she was to follow -up closely with a local orthopedist. Patient was read above instructions understood above instructions and was discharged on 06/05/17
== END 2017-06-05 11:10 | disposition home or self-care (01) | DRG 513 ==
LOC: ER 04:15 → OBSVTOIN 07:38 → INTOOBSV 07:38 → EH 07:38 → 3W 09:32
PROVIDERS: ADMIT Orthopaedic Surgery; ATTEND Orthopaedic Surgery
PROC: 3E0234Z Introduction of Serum, Toxoid and Vaccine into Muscle, Percutaneous Approach (ICD-10-PCS; 2017-06-02)
PROC: 0L9700Z Drainage of Right Hand Tendon with Drainage Device, Open Approach (ICD-10-PCS; principal; 2017-06-03 11:00)
DX: M65.841 Other synovitis and tenosynovitis, right hand (principal); L03.115 Cellulitis of right lower limb; L03.011 Cellulitis of right finger; F60.3 Borderline personality disorder; F32.9 Major depressive disorder, single episode, unspecified; F41.1 Generalized anxiety disorder; F17.210 Nicotine dependence, cigarettes, uncomplicated; F15.10 Other stimulant abuse, uncomplicated; D72.828 Other elevated white blood cell count; B95.62 Methicillin resistant Staphylococcus aureus infection as the cause of diseases classified elsewhere; E87.6 Hypokalemia; Z60.2 Problems related to living alone; Z79.899 Other long term (current) drug therapy; Z88.6 Allergy status to analgesic agent; Z23 Encounter for immunization
CPT/HCPCS: 00400; 36415; 80048; 80053; 80178; 80202; 82565; 83735; 84100; 84703; 85025; 85652; 86140; 87015; 87040; 87070; 87075; 87077; 87101; 87116; 87186; 87205; 87206; 90715; 96361; 96372; 96374; 99284; B4082; G0378; J0295; J0744; J1630; J2060; J2250; J2704; J3010; J3370; J3490; J7030; J7060

== ENCOUNTER 2017-12-16 22:41 | Emergency (ER) | payer SELFPAY ==
[2017-12-16] MEDS ORDERED: NORMAL SALINE 1000 ML 1,000 ML IV ONE (22:56)
[2017-12-16 23:06] LABS: ABSOLUTE EOSINOPHILS # (AUTO) 0.4 10^3/uL (0.0-0.6); ABSOLUTE LYMPHOCYTES (AUTO) 2.9 10^3/uL (0.5-4.7); ABSOLUTE MONOCYTES (AUTO) 0.6 10^3/uL (0.1-1.4); ABSOLUTE NEUT (AUTO) 4.1 10^3/uL (1.7-8.2); BASOPHILS % (AUTO) 0.6 % (0-2); EOSINOPHILS % (AUTO) 4.4 % (0-6); HEMATOCRIT 30.9 % (36.0-47.0); HEMOGLOBIN 10.6 g/dL (12.0-15.5); LYMPHOCYTES % (AUTO) 35.7 % (13-45); MEAN CORPUSCULAR HEMOGLOBIN 29.8 pg (27.0-33.4); MEAN CORPUSCULAR HGB CONC 34.4 g/dL (32.0-36.0); MEAN CORPUSCULAR VOLUME 87 fl (80-97); MONOCYTES % (AUTO) 7.5 % (3-13); PLATELET COUNT 228 10^3/uL (150-450); RED BLOOD COUNT 3.57 10^6/uL (3.72-5.28); RED CELL DISTRIBUTION WIDTH 13.7 % (11.5-14.0); SEGMENTED NEUTROPHILS % (AUTO) 51.8 % (42-78); TOTAL CELLS COUNTED % (AUTO) 100 %
--- NOTE | 2017-12-16 23:13 | ER Document Report ---
ED General - General Chief Complaint: Overdose Stated Complaint: POSSIBLE OVERDOSE Time Seen by Provider: 12/16/17 22:59 Mode of Arrival: Medic Information source: Emergency Med Personnel Notes: 27-year-old female brought to the emergency department by EMS for overdose. Patient was found laying unresponsive by her mother with empty pill bottles surrounding her. Pill bottles included Wellbutrin, gabapentin, lithium, Cymbalta, doxepin. EMS tried 2 mg of Narcan without relief. They attempted rapid sequence intubation with etomidate and sex. This was unsuccessful. A Hesham airway was placed and the patient was brought to the emergency department. TRAVEL OUTSIDE OF THE [place] IN LAST 30 DAYS: No - HPI Onset: Just prior to arrival - Related Data Allergies/Adverse Reactions: codeine Allergy (Verified 06/01/17 21:53) Past Medical History - Social History Smoking Status: Unknown if Ever Smoked Family History: Reviewed & Not Pertinent Renal/ Medical History: Denies: Hx Peritoneal Dialysis Psychiatric Medical History: Reports: Hx Anxiety, Hx Bipolar Disorder, Hx Depression, Hx Personality Disorder - Immunizations Immunizations up to date: No Hx Diphtheria, Pertussis, Tetanus Vaccination: Yes Review of Systems - Review of Systems -: Yes ROS unobtainable due to patient's medical condition Physical Exam - Vital signs Vitals: Temp Resp Pulse Ox 95.0 F L 9 L 100 12/16/17 22:45 12/16/17 22:45 12/16/17 22:45 Interpretation: Normal - Notes Notes: PHYSICAL EXAMINATION: GENERAL: Unresponsive. HEAD: Atraumatic. EYES: Pupils equal round and reactive to light. Corneal reflex intact. ENT: Nares patent, oropharynx clear without exudates. Moist mucous membranes. Hesham airway in place. NECK: Supple without lymphadenopathy LUNGS: Breath sounds clear to auscultation bilaterally and equal. No wheezes rales or rhonchi. HEART: Regular rate and rhythm without murmurs ABDOMEN: Soft, nontender, nondistended abdomen. Normal active bowel sounds. Female : deferred Musculoskeletal: No pitting edema. 2+ pulses in all 4 extremities. NEUROLOGICAL: Corneal and gag reflex intact. GCS is 3. SKIN: Warm, Dry, normal turgor, no rashes or lesions noted. Course - Re-evaluation Re-evalutation: 12/16/17 23:13 I spoke with poison control. Patient had empty pill bottles containing Wellbutrin, gabapentin, lithium, Cymbalta, doxepin. Poison control is concerned for possible seizures from the Wellbutrin as well as a prolonged QTC. Recommend aggressive fluid resuscitation 12/17/17 01:05 Labs and imaging obtained. Potassium low. Started on IV K. Patient given fluids but blood pressure dropping. Levophed started. I contacted Dr. Hu for admission. He recommends transfer for critical care. I contacted [facility]. I spoke with Dr. Pulido. He recommends starting bicarb drip, obtaining ABG, and getting head CT. He accepts transfer. Would like updates regarding abnormal findings. 12/17/17 01:53 CT head is WNL. ABG pending. bicarb drip started. 12/17/17 02:06 ABG shows non-anion gap metabolic acidosis. Flight crew here to transport patient. Patient currently stable. - Vital Signs Vital signs: Temp Pulse Resp BP Pulse Ox 95.8 F L 13 113/68 100 12/17/17 01:45 12/17/17 01:45 12/17/17 01:45 12/17/17 01:45 - Laboratory Result Diagrams: 12/16/17 22:45 12/16/17 22:45 Laboratory results interpreted by me: 12/16/17 12/16/17 12/16/17 22:45 22:45 23:05 RBC 3.57 L Hgb 10.6 L Hct 30.9 L ABG pH ABG pO2 ABG O2 Saturation Potassium 2.7 L* Chloride 112 H Glucose 142 H Calcium 8.1 L Total Protein 5.1 L Albumin 3.2 L Urine Protein 100 H Urine Glucose (UA) 50 H Urine Ketones TRACE H Salicylates < 1.0 L Acetaminophen < 10 L 12/17/17 01:35 RBC Hgb Hct ABG pH 7.33 L ABG pO2 130.5 H ABG O2 Saturation 98.4 H Potassium Chloride Glucose Calcium Total Protein Albumin Urine Protein Urine Glucose (UA) Urine Ketones Salicylates Acetaminophen - EKG Interpretation by Me Additional EKG results interpreted by me: 12/16/17 23:26 EKG: Ventricular rate 77, IA interval 184, QRS duration 122, QTC 589, sinus rhythm. Critical Care Note - Critical Care Note Total time excluding time spent on procedures (mins): 60 Discharge - Discharge Clinical Impression: Hypokalemia, Metabolic acidosis Drug overdose, intentional Qualifiers: Encounter type: initial encounter Qualified Code(s): T50.902A - Poisoning by unspecified drugs, medicaments and biological substances, intentional self-harm , initial encounter Condition: Stable Disposition: [facility]
[2017-12-16 23:20] LABS: ALANINE AMINOTRANSFERASE 23 U/L (9-52); ALBUMIN 3.2 g/dL (3.5-5.0); ALKALINE PHOSPHATASE 42 U/L (38-126); ANION GAP 9 (5-19); ASPARTATE AMINO TRANSFERASE 30 U/L (14-36); BILIRUBIN,DIRECT 0.3 mg/dL (0.0-0.4); BILIRUBIN,TOTAL 0.4 mg/dL (0.2-1.3); BLOOD UREA NITROGEN 8 mg/dL (7-20); CALCIUM 8.1 mg/dL (8.4-10.2); CARBON DIOXIDE 23 mmol/L (22-30); CHLORIDE 112 mmol/L (98-107); GLUCOSE 142 mg/dL (75-110); LIPASE 40.4 U/L (23-300); SODIUM 143.5 mmol/L (137-145); TOTAL PROTEIN 5.1 g/dL (6.3-8.2)
[2017-12-16 23:23] LABS: APPEARANCE,URINE CLEAR; BILIRUBIN,URINE NEGATIVE (NEGATIVE); COLOR,URINE YELLOW; GLUCOSE, URINE 50 mg/dL (NEGATIVE); KETONES,URINE TRACE mg/dL (NEGATIVE); LEUKOCYTE ESTERASE,URINE NEGATIVE (NEGATIVE); NITRITE,URINE NEGATIVE (NEGATIVE); PROTEIN,URINE 100 mg/dL (NEGATIVE); URINE SPECIFIC GRAVITY 1.017; UROBILINOGEN,URINE NEGATIVE mg/dL (<2.0)
[2017-12-16 23:31] LABS: ACETAMINOPHEN < 10 ug/mL (10-30); ALCOHOL < 10 mg/dL (NONE DETECTED); SALICYLATE < 1.0 mg/dL (2.0-20.0)
[2017-12-16 23:32] LABS: POTASSIUM 2.7 mmol/L (3.6-5.0)
[2017-12-16 23:37] LABS: URINE AMPHETAMINES SCREEN UNCONFIRMED POSITIVE; URINE BARBITURATES SCREEN NEGATIVE; URINE BENZODIAZEPINES SCREEN NEGATIVE; URINE COCAINE SCREEN NEGATIVE; URINE MARIJUANA (THC) SCREEN NEGATIVE; URINE METHADONE SCREEN NEGATIVE; URINE PHENCYCLIDINE SCREEN NEGATIVE
[2017-12-16] MEDS ORDERED: POTASSI CL 20 MEQ/50 ML RIDER 20 MEQ/50 ML RTUPB IV SCH (23:45)
[2017-12-17] MEDS ORDERED: POTASSI CL 20 MEQ/50 ML RIDER 20 MEQ/50 ML RTUPB IV ONE (00:13)
[2017-12-17] MEDS ORDERED: DEXTROSE 5%-WATER 250 ML with NOREPINEPHRINE BITARTRATE 4 MG IV PRN ×2 (00:39)
[2017-12-17] MEDS ORDERED: NOREPINEPHRINE BITARTRATE INJ/PF 4 MG/4 ML SDV IV ONE (00:47)
--- NOTE | 2017-12-17 00:50 | RADIOLOGY REPORT (SQ) ---
EXAM DESCRIPTION: XR CHEST 1 VIEW COMPLETED DATE/TME: 12/16/2017 00:00 CLINICAL HISTORY: post intubation COMPARISON: None. FINDINGS: Single frontal view of the chest. Endotracheal tube with tip at the level of the clavicles 4 cm above the joie. NG tube and side-port curled in the stomach. Low lung volumes. Patchy right upper and lower lung opacities. Retrocardiac airspace opacity. Heart is not enlarged. No pneumothorax. No large effusion. No acute osseous abnormality. Upper abdominal soft tissues are unremarkable. IMPRESSION: 1. Endotracheal tube and NG tube in appropriate radiographic position. 2. Bibasilar right upper lung airspace opacity may be related to atelectasis however pneumonia could produce a similar appearance.
[2017-12-17] MEDS ORDERED: DEXTROSE 5%-WATER 1000 ML 1,000 ML with SODIUM BICARBONATE 150 MEQ IV PRN ×2 (00:59)
[2017-12-17] MEDS ORDERED: SODIUM BICARBONATE 8.4% INJ 50 MEQ/50 ML DISP.SYRIN ONE (01:42)
--- NOTE | 2017-12-17 01:46 | RADIOLOGY REPORT (SQ) ---
EXAM DESCRIPTION: CT HEAD WITHOUT IV CONTRAST COMPLETED DATE/TME: 12/17/2017 00:58 CLINICAL HISTORY: unresponsive COMPARISON: None available TECHNIQUE: Axial CT of the head obtained from the skull apex to the skull base without contrast. FINDINGS: No acute intracranial hemorrhage identified. No mass, mass effect, shift of the midline, abnormal extra-axial fluid collection or CT evidence of acute ischemic change identified. The ventricular system is unremarkable. No acute abnormalities of the supratentorial white matter, basal ganglia, cerebellum, or brainstem. Diallo-white matter differentiation is preserved. The visualized paranasal sinuses and the mastoids are clear. No skull fracture identified. Visualized orbits and globes are unremarkable. Endotracheal tube and NG tube partially visualized. DLP: 1043.77 mGy-cm IMPRESSION: 1. No acute intracranial abnormality identified. This exam was performed according to our departmental dose-optimization program, which includes automated exposure control, adjustment of the mA and/or kV according to patient size and/or use of iterative reconstruction technique.
[2017-12-17 01:52] VITALS: BP 113/68
[2017-12-17 01:57] LABS: ARTERIAL BLOOD BASE EXCESS -5.5 mmol/L; ARTERIAL BLOOD H2CO3 1.18 mmol/L (1.05-1.35); ARTERIAL BLOOD O2 SATURATION 98.4 % (94-98); ARTERIAL BLOOD PCO2 39.2 mmHg (35-45); ARTERIAL BLOOD PH 7.33 (7.35-7.45); ARTERIAL BLOOD PO2 130.5 mmHg (80-100); ARTERIAL BLOOD TOTAL CO2 21.2 mmol/L (21-25)
[2017-12-17 01:59] LABS: ARTERIAL BLOOD FIO2 50%
--- NOTE | 2017-12-17 21:52 | EKG REPORT ---
SEVERITY:- ABNORMAL ECG - SINUS RHYTHM NONSPECIFIC INTRAVENTRICULAR CONDUCTION DELAY : Confirmed by: Netta Moore MD 17-Dec-2017 21:50:49
== END 2017-12-17 02:10 | disposition short-term general hospital (02) ==
LOC: ER 22:41
DX: T50.902A Poisoning by unspecified drugs, medicaments and biological substances, intentional self-harm, initial encounter (principal); E87.6 Hypokalemia; E87.2 Acidosis; R41.82 Altered mental status, unspecified; Z88.5 Allergy status to narcotic agent
CPT/HCPCS: 93005; 99291; 96361; 51702; 96375; 96365; 96367; 36415; 80307 ×4; 82803; 83690; 80178; 84703; 85025; 81025; 80053; 81001; 84484; 71045; 70450; 94660; 93010; 31500; J3490; J3480; J7060; J7030